=== PATIENT | female | born 1990 | race Caucasian/White ===

== ENCOUNTER 2017-06-10 17:21 | Inpatient (IN) | payer OTHER ==
[~2017-06-10] VITALS: Ht 154.9 cm; Wt 39.0 kg
--- NOTE | ~2017-06-10 | DS ---
Unit #: [id number] #: [id number] Patient: GEORGIA RICH [id number] [facility]. [place], [place] [address] [id number] MR#: [id number] NAME: GEORGIA RICH ROOM: 46 Age: 27 Sex: F Admission Date: 06/10/2017 : 1990 Discharge Date: 06/12/2017 Attending Physician: Sheyla Lewis M.D. DISCHARGE SUMMARY REASON FOR ADMISSION Nausea, vomiting, abdominal pain, DKA. HISTORY OF PRESENT ILLNESS/HOSPITAL COURSE The patient is a 27-year-old female with a prior history of type 1 diabetes, gastroparesis, status post gastric stimulator followed by Dr. Stallings as an outpatient, history of chronic pancreatitis status post pancreatectomy in April 2017, who presented secondary to intractable nausea, vomiting, as well as, abdominal pain. She was noted to be in DKA at outside facility. She was subsequently transferred to [facility], placed in the ICU. Routine medications were initiated. DKA protocol was initiated. This morning, her DKA now appears to be resolved. Her blood sugar this morning is 135. Her anion gap is now closed. Her CBC shows a hemoglobin of 9.4. She is now tolerating a clear diet well without difficulty. She is at her baseline. At this point in time, she is stable for discharge with appropriate followup as an outpatient with Dr. Stallings. She has requested IV pain medications including Dilaudid. She states that p.o. pain medications do not help her. There is no clear medical indication for her IV pain medications and I have refused to prescribe any. She will be reverted only back to her home medications at discharge with appropriate outpatient followup. FINAL DISCHARGE DIAGNOSES 1. Diabetic ketoacidosis, now resolved. 2. Chronic gastroparesis, followed by Dr. Stallings as an outpatient. 3. Chronic narcotic dependence/substance abuse. 4. History of pancreatectomy in April 2017. 5. Diabetic neuropathy. 6. Anxiety. 7. Splenectomy. 8. Cholecystectomy. 9. Depression history. FINAL DISCHARGE MEDICATIONS 1. Proventil HFA one to two puffs q.4 p.r.n. 2. Lyrica 150 mg p.o. b.i.d. 3. Prozac 40 mg p.o. daily. 4. Trazodone 50 mg p.o. nightly. 5. Phenergan 25 mg p.o. q.6 p.r.n. 6. Humalog 3 units t.i.d. with meals with one unit extra for blood sugar Unit #: [id number] #: [id number] Patient: AKOSUA RICHNA greater than 200. 7. Levemir 10 units subcutaneous b.i.d. 8. Multivitamin daily. DISCHARGE CONDITION Stable. DISCHARGE DISPOSITION Home. Dictated by... Jesica Peña TD: 06/13/2017 12:29 JOB #: [id number] DISCHARGE SUMMARY Page 1 of 1 X Sheyla Lewis MD X DISCHARGE SUMMARY
--- NOTE | ~2017-06-10 | A ---
[facility] Nutrition Therapy DATE: 06/12/17 Patient: GEORGIA RICH Physician: HARVEY Address: [facility] [facility] Room/Bed: [address] [place] [address], Zip: [place] [address] Admit Date: 06/10/17 Date of : [birth year] Height: 5 1 Weight: 85 39 NUTRITIONAL ASSESSMENT: REASON: LOW BMI + DX PT IS 27 Y.O. FEMALE ADMITTED FOR DKA PMH: TYPE 1 DM SINCE AGE 12, CHRONIC PANCREATITIS S/P PANCREATECTOMY IN APRIL 2017, GASTROPARESIS W/GASTRIC STIMULATOR, DIABETIC PERIPHERAL NEUROPATHY, PNA, S/P PEG & J-TUBE PLACEMENT Anthropometrics: 5'1", WT: 85# (38.6 KG), BMI: 16.1, 81%IBW Labs: GLU: 135, BUN: 6, CA+:8.0, ALB: 2.0 Meds: PROTONIX, NOVOLOG I/O & Bowel function: 2845/900 Skin Integrity: NO KNOWN SKIN ISSUES Estimated Nutrition Needs: 7308-0060 KCAL (30-35 KCAL/KG BW) 46-70 G PRO (1.2-1.8 G PRO/KG BW) FLUIDS CONSISTENT W/KCAL NEEDS OR MANAGE PER MD Assessment: CHART REVIEWED AND EVENTS NOTED. PT SEEN FOR UNDERWEIGHT STATUS + DX. PT REPORTS DECREASED PO INTAKE 2' DECREASED APPETITE D/T N/V/ABD PAIN PAST SEVERAL DAYS. PT REPORTS RECEIVING SUPPLEMENTAL ENTERAL NUTRITION SUPPORT OF GLUCERNA 1.5 @ 40 ML/HR FROM 8P-8A. PT STATES DECREASED OVERALL PO INTAKE 2' CHRONIC GASTROPARESIS (N/V). PT REPORTS LOSING ~20# PAST YEAR/SEVERE WEIGHT LOSS NOTED. THIS RD ENCOURAGED SLOW GRADUAL PO INTAKE + SUPPLEMENT INTAKE, PT AGREED TO GLUCERNA SHAKES BID. RD ALSO PROVIDED WRITTEN AND VERBAL CC DIET EDUCATION. PT DEMONSTRATED UNDERSTANDING OF THE TOPIC, REPORTED NO DIET QUESTIONS. RD TO FOLLOW. SEE RECOMMENDATIONS BELOW. -ENTERAL NUTRITION PROVIDES 720 KCAL, 40 G PRO, 365 ML FREE H20 Dx: INADEQUATE PROTEIN-ENERGY INTAKE R/T PMH AEB LOW BMI NOTED (16.1), 81%IBW, ~20# WEIGHT LOSS NOTED IN PAST YEAR, NEED FOR SUPPLEMENTAL NUTRITION SUPPORT. 2. IMPAIRED GLYCEMIC CONTROL R/T DX, PMH AEB ELELVATED BLOOD SUGAT LEVELS, DX. Intervention: 1. CC DIET 2. GLUCERNA SHAKES BID 3. SUPPLEMENTAL NUTRITION 4. DIET EDUCATION [facility] Nutrition Therapy DATE: 06/12/17 Patient: GEORGIA HILARIO Physician: HARVEY Address: [address] [place] [address] Room/Bed: [address] [place] [address], Zip: [place] [address] Admit Date: 06/10/17 Date of : [birth year] Height: 5 1 Weight: 85 39 Monitoring, Evaluation and Goals: 1. ORAL INTAKE; CONSUME/TOLERATE >50% OF MEALS AND SUPPLEMENTS 2. WEIGHTS; PROMOTE GRADUAL WEIGHT GAIN TOWARDS A HEALTHY BMI; PREVENT FURTHER WEIGHT LOSS 3. LABS; WNL: GLU 4. ENTERAL NUTRITION; TOLERATE GOAL W/NO C/O N/V/D MONITOR: -PO INTAKE/APPETITE -SUPPLEMENTAL ENTERAL NUTRITION -SUPPLEMENT INTAKE -WEIGHTS Recommendations: 1. PLEASE PROVIDE UPDATED HgbA1c TO BETTER ASSESS DM MANAGEMENT 2. PLEASE ORDER STRAWBERRY GLUCERNA SHAKES BID W/MEALS FOR ADDITIONAL PROTEIN AND KCAL, PT UNDERWEIGHT 3. IF PT TO REMAIN IN-HOUSE ADDITIONAL 24 HOURS, RECOMMEND TO BEGIN HOME NOCTURNAL ENTERAL NUTRITION SUPPORT OF GLUCERNA 1.5 @ 40 ML/HR FROM 8P-8A 4. APPRECIATE FAMILY AND STAFF TO ENCOURAGE ADEQUATE PO INTAKE 5. PLEASE PROVIDE WEIGHTS q 3 DAYS FOR MONITORING PURPOSES RD WILL F/U PER PROTOCOL PT IS MODERATELY COMPROMISED Respectfully, KAREN BEATTY MS, RD, LD [facility] cc: client file
--- NOTE | ~2017-06-10 | HP ---
Unit #: [id number] #: [id number] Patient: GEORGIA RICH [id number] [address] [place], [place] [address] [id number] MR#: [id number] NAME: GEORGIA RICH ROOM: [facility] Age: 27 Sex: F Admission Date: 06/10/2017 : 1990 Attending Physician: Sheyla Lewis M.D. HISTORY AND PHYSICAL CHIEF COMPLAINT Nausea, vomiting, abdominal pain, diabetic ketoacidosis. DISCUSSION This is a 27-year-old female with a history of type 1 diabetes since age 12, history of gastroparesis with gastric stimulator, history of chronic pancreatitis status post pancreatectomy in April 2017, with a history of splenectomy, cholecystectomy, diabetic peripheral neuropathy, anxiety, depression. She presented today to [facility] with a chief complaint of having abdominal pain, nausea, vomiting and symptoms for two to three days. She says she was using her insulin, Levemir, as she is supposed to use it though there was a history of noncompliance in the past, as per record. In the workup over there, she was found to be DKA and anion gap was 30, pH 7.27, started on insulin drip. X-ray was suspicious for pneumonia, given Zosyn and eventually admitted here in ICU for DKA protocol, on insulin drip. She is telling me she has been having some cough, mainly a dry cough. She says she has been throwing up, nausea and vomiting, many times. She is complaining of severe abdominal pain, diffuse abdominal pain. She denies fever and chills. No loss of consciousness. She has no headache, no dizziness. PAST MEDICAL HISTORY 1. History of type 1 diabetes since age 12. 2. History of gastroparesis with history of gastric stimulator. 3. History of chronic pancreatitis, status post pancreatectomy in April 2017. 4. History of diabetic peripheral neuropathy. 5. Anxiety/depression. PAST SURGICAL HISTORY 1. History of gastric stimulator. 2. History of pancreatectomy. 3. Splenectomy. 4. Cholecystectomy. 5. History of ASD repair in childhood. 6. History of . 7. Tubal ligation. 8. History of PEG and J-tube placement. SOCIAL HISTORY She denies smoking, she denies alcohol, she denies illicit drug use. FAMILY HISTORY Unit #: [id number] #: [id number] Patient: GEORGIA RICH Mother has type 2 diabetes, Crohn disease. Sister has hypothyroid. ALLERGIES She is allergic to latex. MEDICATIONS Medications from home as followin. Lyrica 150 b.i.d. 2. Prozac 40 mg daily. 3. Phenergan 25 mg q.6 hours p.r.n. 4. Humalog sliding scale. 5. Levemir 10 units b.i.d. 6. Pacerone 50 mg at bedtime. 7. Glucerna 1.5, 40 mL from 7 p.m. to 7 a.m. 8. Ventolin two puffs q.4 hours p.r.n. REVIEW OF SYSTEMS Negative except History of Present Illness. PHYSICAL EXAMINATION GENERAL: 27-year-old young female lying in the bed comfortably, currently not in any distress. She is alert, awake, oriented x3. CURRENT VITAL SIGNS: Temperature 98, heart rate 98, respiratory rate 22, blood pressure 116/84. HEENT: Pupils equal, reactive to light and accommodation. Head is normocephalic, atraumatic. NECK: Supple. No JVD. HEART: S1, S2. Regular rate and rhythm. LUNGS: Clear to auscultation bilaterally. No rhonchi, no wheezing. ABDOMEN: Soft. Positive PEG and J-tube. Positive bowel sounds. No guarding, no rigidity. EXTREMITIES: Inspection normal. No cyanosis, no clubbing, no edema. NEURO: No focal neurologic deficit. Cranial nerves II-XII intact. Power 5/5 on both sides. SKIN: Warm and dry. PSYCH: Normal mood and affect. DIAGNOSTIC STUDIES LABORATORY: UA shows hazy appearance. Nitrate negative, leukocyte negative, glucose 3+. Glucose 503, BUN 7, creatinine 0.5, anion gap 30. LFT within normal limits. Lipase 6, lactic acid 1.5, white count 7.9, hemoglobin 4, hematocrit 38, platelet is 1271. ABG - pH 7.27, INR is 1.39. IMAGING: Chest x-ray shows bibasilar densities, probably due to pneumonia. ASSESSMENT AND PLAN 1. Diabetic ketoacidosis: Will admit the patient in ICU. Continue the DKA protocol. Keep NPO. 2. Pneumonia, start on Zosyn 3.375 g IV q.8 hour. 3. History of type 1 diabetes since age 12. 4. History of gastroparesis with gastric stimulator in the past. 5. History of chronic pancreatitis with pancreatectomy in April 2017. 6. History of diabetic neuropathy. Unit #: [id number] #: [id number] Patient: GEORGIA RICH 7. Anxiety and depression. 8. DVT and GI prophylaxis: Place the patient on Protonix and Lovenox 40 subcu daily. She has been having most of admission at [facility]. I will go ahead and get record from the [facility]. Dictated by Jesica Duenas TD: 06/11/2017 09:48 JOB #: [id number] HISTORY AND PHYSICAL Page 1 of 1 X X HISTORY AND PHYSICAL
[2017-06-10] MEDS ORDERED: LYRICA50 MG PO (20:17)
[2017-06-10] MEDS ORDERED: PROZAC40 M1 PO (20:17)
[2017-06-10] MEDS ORDERED: PHENERGAN25 M1 PO (20:18)
[2017-06-10] MEDS ORDERED: HUMALOG100 UNIT/1 (20:19)
[2017-06-10] MEDS ORDERED: MULTI VITAMIN1 EACH PO (20:21)
[2017-06-10] MEDS ORDERED: LEVEMIR100 UNITS/ SUBQ (20:21)
[2017-06-10] MEDS ORDERED: DESYREL50 MG PO (20:22)
[2017-06-10] MEDS ORDERED: ALBUTEROL17 GM INH (20:23)
[2017-06-10 21:58] LABS: BUN/CREATININE RATIO 7.5; CALCIUM SERUM 7.7 mg/dL (8.4-10.2); CREATININE SERUM 0.8 mg/dL (0.6-1.4); GLOM FILT RATE Estimated 102.6 mL/min (>60); MAGNESIUM 1.1 mg/dL (1.6-3.0); PHOSPHOROUS 2.6 mg/dL (2.5-4.6); POTASSIUM 3.5 mmol/L (3.5-5.1)
[2017-06-11 01:39] LABS: BUN/CREATININE RATIO 8.57; CALCIUM SERUM 7.6 mg/dL (8.4-10.2); CREATININE SERUM 0.7 mg/dL (0.6-1.4); GLOM FILT RATE Estimated 120.4 mL/min (>60); POTASSIUM 3.8 mmol/L (3.5-5.1)
[2017-06-11 09:12] LABS: BUN/CREATININE RATIO 7.5; CALCIUM SERUM 7.9 mg/dL (8.4-10.2); CREATININE SERUM 0.8 mg/dL (0.6-1.4); GLOM FILT RATE Estimated 102.6 mL/min (>60); MAGNESIUM 1.6 mg/dL (1.6-3.0); POTASSIUM 4.6 mmol/L (3.5-5.1)
[2017-06-12 03:28] LABS: BASOPHIL% 0.7 % (0-2.5); DIFF IND NO; EOSINOPHIL# 0.4 X10e3 (0-0.7); EOSINOPHIL% 5.9 % (0.0-7.0); HEMATOCRIT 29.4 % (35.0-45.0); HEMOGLOBIN 9.4 gm/dL (12.0-16.0); LYMPHOCYTE# 0.6 X10e3 (1.0-3.5); MEAN CELL VOLUME 89.4 FL (83-96); MEAN CORPUSCULAR HEMOGLOBIN 28.6 PG (28-34); MEAN PLATELET VOLUME 7.2 FL (6.5-11.5); MONOCYTE# 0.2 X10e3 (0-1.0); MONOCYTE% 3.5 % (3.0-12.0); NEUTROPHIL% 79.9 % (40-75); PLATELET COUNT 613 X10e3 (140-420); RED BLOOD COUNT 3.29 X10e (3.90-5.30); RED CELL DISTRIBUTION WIDTH 17.9 % (11.0-15.5); WHITE BLOOD COUNT 6.3 X10e3 (4.0-10.5)
[2017-06-12 03:57] LABS: BILIRUBIN,TOTAL 0.2 mg/dL (0.2-2.0); GLOM FILT RATE Estimated 78.3 mL/min (>60); MAGNESIUM 2.1 mg/dL (1.6-3.0); POTASSIUM 3.8 mmol/L (3.5-5.1); PROTEIN TOTAL SERUM 6.5 g/dL (6.0-8.3)
[2017-06-13 06:37] LABS: MAGNESIUM 1.7 mg/dL (1.6-3.0); POTASSIUM 4.1 mmol/L (3.5-5.1)
== END 2017-06-13 14:44 | disposition home or self-care (01) | DRG 637 ==
LOC: CEDOF 19:44 → CICCU2 19:52 → C4C 06-11 17:00
PROVIDERS: Family Medicine; Internal Medicine
DX: E10.10 Type 1 diabetes mellitus with ketoacidosis without coma (principal); J69.0 Pneumonitis due to inhalation of food and vomit; K31.84 Gastroparesis; E10.40 Type 1 diabetes mellitus with diabetic neuropathy, unspecified; F11.20 Opioid dependence, uncomplicated; E10.43 Type 1 diabetes mellitus with diabetic autonomic (poly)neuropathy; F41.9 Anxiety disorder, unspecified; F32.9 Major depressive disorder, single episode, unspecified; Z90.49 Acquired absence of other specified parts of digestive tract; Z79.4 Long term (current) use of insulin; Z90.410 Acquired total absence of pancreas; Z91.040 Latex allergy status; Z90.81 Acquired absence of spleen
CPT/HCPCS: 80048; 80053; 82947; 83735; 84100; 84132; 85025; 94760; C9113; J1170; J1650; J1815; J1885; J2405; J2543; J2550; J3475